=== PATIENT | male | born 1975 | race Caucasian/White ===

== ENCOUNTER 2017-02-21 04:53 | Emergency (ER) | payer OTHER ==
[2017-02-21 05:04] VITALS: BMI 24.4
[2017-02-21] MEDS ORDERED: SODIUM CHLORIDE 1,000 ML IV STA (05:47)
[2017-02-21] MEDS ORDERED: KETOROLAC TROMETHAMINE 30 MG/1 ML VIAL IVPUSH ONE (05:47)
[2017-02-21] MEDS ORDERED: ONDANSETRON 4 MG/2 ML VIAL IVPUSH ONE (05:47)
[2017-02-21] MEDS ORDERED: ONDANSETRON 4 MG/2 ML VIAL ONE (05:52)
--- NOTE | 2017-02-21 05:54 | PDOC ---
History of Present Illness - General Chief Complaint: Pain, Acute Stated Complaint: BACK PAIN Time Seen by Provider: 02/21/17 05:14 History Source: Patient Exam Limitations: Language Barrier - History of Present Illness Travel History: No Initial Comments: 02/21/17 05:49 41yo Male patient presents to ED c/o right flank pain which began yesterday and worsened this am. Patient states he took Tylenol with no relief. He denies n/v/d , fever, diff breathing, CP, dysuria, or any other complaints at this time. Timing/Duration: reports: getting worse Quality: reports: moderate, cramping Abdominal Pain Onset Location: reports: flank Pain Radiation: reports: groin Activities at Onset: reports: no specific activity Treatment Prior to Arrive: improves with: analgesics Aggravating Factors: improves with: Movement Alleviating Factors: improves with: Rest Past History - Travel Traveled outside of the country in the last 30 days: No Close contact w/someone who was outside of country & ill: No - Past Medical History Allergies/Adverse Reactions: Allergies Allergy/AdvReac Type Severity Reaction Status Date / Time No Known Allergies Allergy Verified 02/21/17 05:04 Home Medications: Ambulatory Orders Levofloxacin [Levaquin] 500 mg PO DAILY #14 tablet 02/21/17 Oxycodone HCl/Acetaminophen [Oxycodone-Acetaminophen 5-325] 1 each PO Q6H PRN # 20 tablet MDD 4 tabs 02/21/17 Anemia: No Asthma: No Cancer: No Cardiac Disorders: No CVA: No COPD: No DVT: No Dementia: No Diabetes: No Dialysis: No GI Disorders: No Disorders: No HTN: No Hypercholesterolemia: No HIV: No Kidney Stones: No Liver Disease: No Psychiatric Problems: No Seizures: No Thyroid Disease: No Lung CA: No - Psycho/Social/Smoking Cessation Hx Anxiety: No Suicidal Ideation: No Smoking History: Never smoked Have you smoked in the past 12 months: No Information on smoking cessation initiated: No Hx Alcohol Use: No Drug/Substance Use Hx: No Substance Use Type: None Abd/GI Specific PMHX - Complaint Specific PMHX Colitis: No Diverticulitis: No Gall Bladder Disease: No GERD: No Hepatitis: No Irritable Bowel Synd (IBS): No Pancreatitis: No GI Ulcer Disease: No Review of Systems - Review of Systems Able to Perform ROS?: Yes Is the patient limited [place] proficient: No Constitutional: No: Chills, Fever Cardiac (ROS): No: Chest Pain ABD/GI: Yes: Abdominal cramping (Rt Lower Abd Pain). No: Constipated, Diarrhea , Nausea, Poor Appetite, Poor Fluid Intake, Vomiting : Yes: Flank Pain Musculoskeletal: No: Back Pain All Other Systems: Reviewed and Negative *Physical Exam - Vital Signs Last Vital Signs Temp Pulse Resp BP Pulse Ox 99.7 F H 74 18 105/77 100 02/21/17 05:02 02/21/17 05:02 02/21/17 05:02 02/21/17 05:02 02/21/17 05:02 - Physical Exam General Appearance: Yes: Nourished, Appropriately Dressed, Apparent Distress, Moderate Distress. No: Mild Distress, Severe Distress Respiratory/Chest: positive: Lungs Clear, Normal Breath Sounds. negative: Chest Tender, Respiratory Distress, Accessory Muscle Use, Labored Respiration, Rapid RR Cardiovascular: positive: Regular Rhythm, Regular Rate Gastrointestinal/Abdominal: positive: Normal Bowel Sounds, Tender, Soft, Guarding, Rebound, Tenderness (Rt groin region/lower quadrant radiating to right flank.). negative: Distended Musculoskeletal: positive: Normal Inspection, CVA Tenderness, CVA Tenderness (R) . negative: CVA Tenderness (L), Vertebral Tenderness Extremity: positive: Normal Capillary Refill, Normal Inspection, Normal Range of Motion. negative: Pedal Edema, Swelling, Calf Tenderness, Erythema, Inflammation Integumentary: positive: Normal Color, Dry, Warm Neurologic: positive: bulk mail clerk II-XII NML intact, Fully Oriented, Alert, Normal Mood/ Affect, Normal Response, Motor Strength /5 ED Treatment Course - LABORATORY CBC & Chemistry Diagram: 02/21/17 06:08 02/21/17 06:08 - RADIOLOGY Radiology Studies Ordered: Category Date Time Status ABDOMEN & PELVIS CT W/O CONTR [CT] Stat CT Scan 02/21/17 05:47 Ordered *DC/Admit/Observation/Transfer Diagnosis at time of Disposition: Pyelonephritis UTI (urinary tract infection) Qualifiers: Urinary tract infection type: acute pyelonephritis Qualified Code(s): N10 - Acute pyelonephritis - Discharge Dispostion Disposition: HOME Condition at time of disposition: Stable Admit: No - Prescriptions Prescriptions: Levofloxacin [Levaquin] 500 mg PO DAILY #14 tablet Oxycodone HCl/Acetaminophen [Oxycodone-Acetaminophen 5-325] 1 each PO Q6H PRN # 20 tablet MDD 4 tabs PRN Reason: Severe Pain - Referrals Referrals: David Escalante MD., MD [Staff Physician] - - Patient Instructions Printed Discharge Instructions: DI for Urinary Tract Infection (UTI), DI for Kidney Infection Additional Instructions: Follow up with Dr. Escalante (Urology) this week. Call today to schedule appointment. Take medications as prescribed. Return if your symptoms worsen, or any concerns for further evaluation. You have been diagnosed with Kidney Infection probably the result of UTI. Seguimiento con el Dr. Escalante (Urologa) esta semana. Llame hoy para programar asmita allison. [place] los medicamentos segn lo prescrito. Vuelva si richard sntomas empeoran, o cualquier preocupacin para la evaluacin adicional. Usted ruggiero sido diagnosticado con infeccin renal probablemente el resultado de la ITU. Print Language: MALAY
[2017-02-21 05:58] LABS: URINE APPEARANCE CLOUDY; URINE BILIRUBIN NEGATIVE (NEGATIVE); URINE COLOR YELLOW; URINE GLUCOSE (UA) NEGATIVE (NEGATIVE); URINE KETONE NEGATIVE (NEGATIVE); URINE NITRITE NEGATIVE (NEGATIVE); URINE UROBILINOGEN NEGATIVE E.U./dl (0.2-1.0)
[2017-02-21 06:17] LABS: URINE BLOOD 3+ (NEGATIVE); URINE LEUK ESTERASE 3+ (NEGATIVE); URINE PROTEIN 1+ (NEGATIVE)
[2017-02-21] MEDS ORDERED: KETOROLAC TROMETHAMINE 60 MG/2 ML VIAL ONE (06:19)
[2017-02-21 06:21] LABS: BASOPHIL 0.4 % (0-2.0); EOSINOPHIL 0.6 % (0-4.5); MCH 30.2 pg (25.7-33.7); MCHC 34.2 g/dl (32.0-35.9); MEAN CELL VOLUME 88.4 fl (80-96); NEUTROPHILS 78.9 % (42.8-82.8); PLATELET COUNT 287 K/MM3 (134-434); RDW 13.5 % (11.9-15.9); WHITE BLOOD COUNT 12.7 K/mm3 (4.0-10.0)
[2017-02-21 06:33] LABS: URINE BACTERIA MANY /hpf (NONE SEEN); URINE MUCUS RARE; URINE RBC 42 /hpf (0-3); URINE WBC 398 /hpf (3-5)
[2017-02-21 06:54] LABS: ALBUMIN 3.8 g/dl (3.4-5.0); AMYLASE 56 U/L (25-115); ANION GAP 10 (8-16); BILIRUBIN,TOTAL 0.4 mg/dL (0.2-1.0); CALCIUM 8.5 mg/dL (8.5-10.1); CO2 25 mmol/L (21-32); CREATININE 0.8 mg/dL (0.7-1.3); GLUCOSE,RANDOM 96 mg/dL (74-106); SGOT/AST 18 U/L (15-37); SGPT/ALT 22 U/L (12-78); TOT PROT 7.1 g/dl (6.4-8.2)
[2017-02-21 06:55] LABS: ALK PHOS 81 U/L (45-117)
[2017-02-21 06:59] VITALS: BP 108/56; PULSE 64; TEMP 98.4
[2017-02-21] MEDS ORDERED: cefTRIAXone 1 GM/50 ML BAG (PRE-DOCKED) IVPB ONE (07:10)
[2017-02-21] MEDS ORDERED: LEVOFLOXACIN 750 MG IVPB 150 ML IVPB ONE (07:25)
--- NOTE | 2017-02-21 08:05 | PDOC ---
*Physical Exam - Vital Signs Last Vital Signs Temp Pulse Resp BP Pulse Ox 98.4 F 64 18 108/56 100 02/21/17 06:58 02/21/17 06:58 02/21/17 06:58 02/21/17 06:58 02/21/17 06:58 ED Treatment Course - LABORATORY CBC & Chemistry Diagram: 02/21/17 06:08 02/21/17 06:08 - ADDITIONAL ORDERS Additional order review: Laboratory Results 02/21/17 02/21/17 06:08 05:33 Sodium 140 Potassium 3.8 Chloride 105 Carbon Dioxide 25 Anion Gap 10 BUN 15 Creatinine 0.8 Creat Clearance w eGFR > 60 Random Glucose 96 Calcium 8.5 Total Bilirubin 0.4 AST 18 ALT 22 Alkaline Phosphatase 81 Total Protein 7.1 Albumin 3.8 Total Amylase 56 Lipase 80 Urine Color Yellow Urine Appearance Cloudy Urine pH 6.0 Urine Protein 1+ H Urine Glucose (UA) Negative Urine Ketones Negative Urine Blood 3+ H Urine Nitrite Negative Urine Bilirubin Negative Urine Urobilinogen Negative Ur Leukocyte Esterase 3+ H Urine RBC 42 Urine WBC 398 Ur Epithelial Cells Rare Urine Bacteria Many Urine Mucus Rare 02/21/17 06:08 RBC 4.70 MCV 88.4 MCHC 34.2 RDW 13.5 MPV 9.0 Neutrophils % 78.9 Lymphocytes % 12.0 Monocytes % 8.1 Eosinophils % 0.6 Basophils % 0.4 - Medications Given in the ED: ED Medications Discontinued Medications Generic Name Dose Route Start Last Admin Trade Name Ralfq PRN Reason Stop Dose Admin Ceftriaxone Sodium 1 gm 02/21/17 07:10 02/21/17 07:46 Rocephin 1gm Ivpb (Pre-Docked) IVPB 02/21/17 07:11 1 gm ONCE ONE Administration Protocol Sodium Chloride 1,000 mls @ 1,000 mls/hr 02/21/17 05:47 02/21/17 06:16 Normal Saline - IV 02/21/17 06:46 1,000 mls/hr ASDIR STA Administration Ketorolac Tromethamine 30 mg 02/21/17 05:47 02/21/17 06:23 Toradol Injection - IVPUSH 02/21/17 05:48 30 mg ONCE ONE Administration Ondansetron HCl 4 mg 02/21/17 05:47 02/21/17 06:08 Zofran Injection IVPUSH 02/21/17 05:48 4 mg ONCE ONE Administration *DC/Admit/Observation/Transfer Diagnosis at time of Disposition: Pyelonephritis UTI (urinary tract infection) Qualifiers: Urinary tract infection type: acute pyelonephritis Qualified Code(s): N10 - Acute pyelonephritis - Discharge Dispostion Disposition: HOME Condition at time of disposition: Good - Prescriptions Prescriptions: Levofloxacin [Levaquin] 500 mg PO DAILY #14 tablet Oxycodone HCl/Acetaminophen [Oxycodone-Acetaminophen 5-325] 1 each PO Q6H PRN # 20 tablet MDD 4 tabs PRN Reason: Severe Pain - Referrals Referrals: David Escalante MD., MD [Staff Physician] - - Patient Instructions Printed Discharge Instructions: DI for Kidney Infection, DI for Urinary Tract Infection (UTI) Additional Instructions: Follow up with Dr. Escalante (Urology) this week. Call today to schedule appointment. Take medications as prescribed. Return if your symptoms worsen, or any concerns for further evaluation. You have been diagnosed with Kidney Infection probably the result of UTI. Seguimiento con el Dr. Escalante (Urologa) esta semana. Llame hoy para programar asmita allison. [place] los medicamentos segn lo prescrito. Vuelva si richard sntomas empeoran, o cualquier preocupacin para la evaluacin adicional. Usted ruggiero sido diagnosticado con infeccin renal probablemente el resultado de la ITU. Print Language: MARSH[place] - Post Discharge Activity
[2017-02-21] MEDS ORDERED: LEVOFLOXACIN 750 MG TABLET PO SCH (10:00)
== END 2017-02-21 08:11 | disposition home or self-care (01) ==
LOC: JER 04:53
DX: N10 Acute pyelonephritis (principal)
CPT/HCPCS: 36415; 74176-TC; 80053; 81003; 81015; 82150; 83690; 85025; 99283-25